=== PATIENT | female | born 1975 | race Caucasian/White ===

== ENCOUNTER 2019-09-19 19:57 | Inpatient (IN) ==
[~2019-09-19 19:57] MED LIST: ENOXAPARIN 40 MG/0.4 ML SYRINGE SUBCUT SCH
[2019-09-19] MEDS ORDERED: ALBUTEROL 2.5 MG/3 ML NEB RESP TX PRN (22:36)
[2019-09-19] MEDS ORDERED: guaiFENesin/CODEINE 5 ML LIQUID PO PRN (22:36)
[2019-09-19] MEDS ORDERED: GLUCAGON 1 MG VIAL IM PRN ×2 (22:36→22:47)
[2019-09-19] MEDS ORDERED: DEXTROSE 50% 25 GM/50 ML SYRINGE IV PRN (22:36)
[2019-09-19] MEDS ORDERED: INFLUENZA VIRUS VACCINE 0.5 ML SYRINGE IM ONE (22:37)
[2019-09-19] MEDS ORDERED: DEXTROSE 50% 25 GM/50 ML VIAL IV PRN (22:47)
[2019-09-19] MEDS ORDERED: POTASSIUM CHLORIDE 20 MEQ TABLET PO ONE (22:55)
[2019-09-19] MEDS: AZTREONAM 2,000 MG in SODIUM CHLORIDE 0.9% 100 ML IV SCH (23:58)
[2019-09-20 00:01] LABS: Apearance,Urine Slightly Hazy (Clear); Bilirubin,Urine Negative (Negative); Blood, Urine Large mg/dL (Negative); Glucose,Urine (UA) >=500 mg/dL (Negative); Ketones,Urine Negative (Negative); Nitrite,Urine Negative (Negative); Protein,Urine 30 MG/DL; RBC,Urine 3043 /HPF (0-4); Urine Color Red (Yellow); Urine Specific Gravity 1.022 (1.001-1.035); Urine Urobilinogen < 2.0 EU/DL (0.2-1.0); WBC,Urine 24 /HPF (0-6)
[2019-09-20] MEDS: INSULIN REGULAR 100 UNIT/ML SUBCUT SCH ×5 (00:12→22:10)
[2019-09-20] MEDS: guaiFENesin/DM ER 600-30 MG TABLET PO SCH ×3 (00:19→22:11)
[2019-09-20] MEDS: ONDANSETRON 4 MG/2 ML VIAL IV PRN ×2 (00:23→10:31)
[2019-09-20] MEDS: tiZANidine 4 MG TABLET PO PRN (00:44)
[2019-09-20] MEDS: GABAPENTIN 600 MG TABLET PO SCH ×4 (00:44→22:11)
[2019-09-20] MEDS: AMITRIPTYLINE 50 MG TABLET PO SCH ×2 (00:44→22:11)
[2019-09-20] MEDS: LEVOFLOXACIN INJ 750 MG in PREMIX 1 EACH IV SCH (01:24)
[2019-09-20 01:50] LABS: Barbiturates Screen,Urine Negative (Negative); Benzodiazepines Screen,Urine Negative (Negative); Cannabinoid Screen,Urine Negative (Negative); Opiate Screen,Urine Negative (Negative); Phencyclidine Screen,Urine Negative (Negative)
[2019-09-20] MEDS: LEVALBUTEROL 1.25 MG/3 ML NEB RESP TX SCH ×4 (01:50→20:40)
[2019-09-20] MEDS: AZTREONAM 2,000 MG in SODIUM CHLORIDE 0.9% 100 ML IV SCH ×4 (05:15→22:11)
[2019-09-20 07:19] LABS: ABG Base Excess 1.1 MMOL/L (-2.5-2.5); ABG HCO3 25.2 MMOL/L (20-26); ABG Oxygen Saturation 88.1 % (95-100); ABG PCO2 39.5 MM HG (35-48); ABG PH 7.419 (7.35-7.45); ABG PO2 56.9 MM HG (80-95); ABG TCO2 22.8 MMOL/L (23-27); Allen Test Positive
[2019-09-20 08:13] LABS: Basophils % 0.2 % (0.0-0.8); Eosinophils # 0.1 10*3/uL (0.0-0.87); Eosinophils % 0.4 % (0.00-10.9); Hematocrit 35.5 VOL% (35.7-47.0); Hemoglobin 11.6 GM/DL (12.0-16.0); Immature Granulocytes % 0.4 %; Immature Granulocytes Absolute 0.05 #; Lymphocytes # 1.1 10*3/uL (1.4-4.0); Lymphocytes % 9.5 % (21.3-54.2); Mean Corpuscular HGB Conc 32.7 GM/DL (32-36); Mean Corpuscular Volume 87.9 FL (87-102); Mean Platelet Volume 10.5 FL (9.6-12.0); Monocytes % 1.5 % (1.7-12.7); Platelet Count 287 T/CUMM (130-400); Red Blood Count 4.04 MC/CUMM (3.8-5.5); Red Cell Distribution Width 14.5 % (9.3-17.3); White Blood Count 11.6 T/CUMM (4-12)
[2019-09-20] MEDS: ENOXAPARIN 40 MG/0.4 ML SYRINGE SUBCUT SCH (08:35)
[2019-09-20] MEDS: PANTOPRAZOLE 40 MG TABLET PO SCH (08:35)
[2019-09-20 08:39] LABS: Band Neutrophils 9 % (0-10); Eosinophils 1 % (0-10); Hypochromasia 1+; Lymphocytes 11 % (20-55); Metamyelocytes 1 %; Microcytosis Slight; Segmented Neutrophils 77 % (50-85); Total Cells Counted 100
[2019-09-20 08:40] LABS: Platelet Estimate Normal
[2019-09-20 08:41] LABS: Albumin 2.4 G/DL (3.4-5.0); Bilirubin,Total 1.6 MG/DL (0.2-1.0); Calcium 8.8 MG/DL (8.5-10.1); Total Protein 7.2 G/DL (6.4-8.3)
[2019-09-20] MEDS ORDERED: PANTOPRAZOLE 40 MG TABLET PO SCH (09:00)
[2019-09-20] MEDS: FUROSEMIDE 40 MG/4 ML VIAL IV SCH ×2 (10:16→16:06)
[2019-09-20] MEDS: MONTELUKAST 10 MG TABLET PO SCH (14:41)
[2019-09-20] MEDS: SERTRALINE 50 MG TABLET PO SCH (14:42)
[2019-09-20] MEDS: LORATADINE 10 MG TABLET PO SCH (14:42)
[2019-09-20] MEDS ORDERED: DEXTROSE 50% 25 GM/50 ML VIAL IV PRN (16:18)
[2019-09-21] MEDS: LEVALBUTEROL 1.25 MG/3 ML NEB RESP TX SCH ×4 (00:25→20:33)
[2019-09-21] MEDS: LEVOFLOXACIN INJ 750 MG in PREMIX 1 EACH IV SCH (01:06)
[2019-09-21] MEDS ORDERED: propofoL 200 MG/20 ML VIAL IV ONE (01:59)
[2019-09-21] MEDS ORDERED: ETOMIDATE 20 MG/10 ML VIAL IV ONE (01:59)
[2019-09-21] MEDS ORDERED: VECURONIUM 10 MG VIAL IV ONE (01:59)
[2019-09-21 02:18] LABS: ABG Base Excess 2.7 MMOL/L (-2.5-2.5); ABG HCO3 26.6 MMOL/L (20-26); ABG Oxygen Saturation 89.2 % (95-100); ABG PCO2 36.6 MM HG (35-48); ABG PH 7.464 (7.35-7.45); ABG PO2 55.9 MM HG (80-95); ABG TCO2 23.2 MMOL/L (23-27)
[2019-09-21] MEDS: AZTREONAM 2,000 MG in SODIUM CHLORIDE 0.9% 100 ML IV SCH ×4 (05:20→23:08)
[2019-09-21 06:09] LABS: Basophils % 0.1 % (0.0-0.8); Eosinophils # 0.1 10*3/uL (0.0-0.87); Eosinophils % 0.7 % (0.00-10.9); Hematocrit 35.6 VOL% (35.7-47.0); Hemoglobin 11.5 GM/DL (12.0-16.0); Immature Granulocytes % 0.6 %; Immature Granulocytes Absolute 0.08 #; Lymphocytes # 1.1 10*3/uL (1.4-4.0); Lymphocytes % 7.7 % (21.3-54.2); Mean Corpuscular HGB Conc 32.3 GM/DL (32-36); Mean Corpuscular Volume 86.8 FL (87-102); Mean Platelet Volume 10.4 FL (9.6-12.0); Monocytes % 1.5 % (1.7-12.7); Neutrophils % 89.4 % (38.7-73.9); Platelet Count 283 T/CUMM (130-400); Red Cell Distribution Width 14.5 % (9.3-17.3); White Blood Count 13.8 T/CUMM (4-12)
[2019-09-21 06:29] LABS: Calcium 8.4 MG/DL (8.5-10.1); Osmolality,Calculated 268.8 MOS/KG (273-304)
[2019-09-21 06:35] LABS: Band Neutrophils 3 % (0-10); Lymphocytes 6 % (20-55); Segmented Neutrophils 89 % (50-85); Total Cells Counted 100
[2019-09-21 06:36] LABS: Anisocytosis 1+; Platelet Estimate Normal
[2019-09-21] MEDS: INSULIN REGULAR 100 UNIT/ML SUBCUT SCH ×4 (08:39→20:37)
[2019-09-21] MEDS: guaiFENesin/DM ER 600-30 MG TABLET PO SCH ×2 (08:40→20:19)
[2019-09-21] MEDS: LORATADINE 10 MG TABLET PO SCH (08:40)
[2019-09-21] MEDS: ENOXAPARIN 40 MG/0.4 ML SYRINGE SUBCUT SCH (08:40)
[2019-09-21] MEDS: glipiZIDE 10 MG TABLET PO SCH (08:40)
[2019-09-21] MEDS: POTASSIUM CHLORIDE 20 MEQ TABLET PO PRN ×4 (08:40→17:14)
[2019-09-21] MEDS: GABAPENTIN 600 MG TABLET PO SCH ×3 (08:40→20:19)
[2019-09-21] MEDS: ROSUVASTATIN 10 MG TABLET PO SCH (08:40)
[2019-09-21] MEDS: SERTRALINE 50 MG TABLET PO SCH (08:40)
[2019-09-21] MEDS: PANTOPRAZOLE 40 MG TABLET PO SCH (08:44)
[2019-09-21] MEDS: MONTELUKAST 10 MG TABLET PO SCH (08:44)
[2019-09-21] MEDS ORDERED: MAGNESIUM SULF RIDER 2 GM in PREMIX 1 EACH IV PRN (10:10)
[2019-09-21] MEDS ORDERED: MAGNESIUM SULF RIDER 4 GM in PREMIX 1 EACH IV PRN (10:10)
[2019-09-21] MEDS: FUROSEMIDE 40 MG/4 ML VIAL IV SCH ×2 (11:13→15:17)
[2019-09-21] MEDS: ACETAMINOPHEN 325 MG TABLET PO PRN (17:21)
[2019-09-21] MEDS: AMITRIPTYLINE 50 MG TABLET PO SCH (20:19)
[2019-09-22] MEDS: AZTREONAM 2,000 MG in SYRINGE 1 EACH IV SCH ×5 (00:06→23:21)
[2019-09-22] MEDS: LEVOFLOXACIN INJ 750 MG in PREMIX 1 EACH IV SCH ×2 (00:06→23:21)
[2019-09-22] MEDS: LEVALBUTEROL 1.25 MG/3 ML NEB RESP TX SCH ×4 (00:12→20:25)
[2019-09-22] MEDS: ENOXAPARIN 40 MG/0.4 ML SYRINGE SUBCUT SCH (07:57)
[2019-09-22] MEDS: FUROSEMIDE 40 MG/4 ML VIAL IV SCH (07:58)
[2019-09-22] MEDS: SERTRALINE 50 MG TABLET PO SCH (08:00)
[2019-09-22] MEDS: guaiFENesin/DM ER 600-30 MG TABLET PO SCH ×2 (08:00→20:10)
[2019-09-22] MEDS: PANTOPRAZOLE 40 MG TABLET PO SCH (08:00)
[2019-09-22] MEDS: MONTELUKAST 10 MG TABLET PO SCH (08:00)
[2019-09-22] MEDS: glipiZIDE 10 MG TABLET PO SCH (08:00)
[2019-09-22] MEDS: ROSUVASTATIN 10 MG TABLET PO SCH (08:00)
[2019-09-22] MEDS: GABAPENTIN 600 MG TABLET PO SCH ×3 (08:00→20:10)
[2019-09-22] MEDS: LORATADINE 10 MG TABLET PO SCH (08:00)
[2019-09-22 08:30] LABS: Basophils % 0.3 % (0.0-0.8); Eosinophils # 0.3 10*3/uL (0.0-0.87); Eosinophils % 2.5 % (0.00-10.9); Hematocrit 37.2 VOL% (35.7-47.0); Immature Granulocytes % 0.8 %; Immature Granulocytes Absolute 0.09 #; Lymphocytes # 1.1 10*3/uL (1.4-4.0); Lymphocytes % 9.5 % (21.3-54.2); Mean Corpuscular HGB Conc 32.3 GM/DL (32-36); Mean Corpuscular Volume 87.9 FL (87-102); Mean Platelet Volume 9.9 FL (9.6-12.0); Monocytes % 1.4 % (1.7-12.7); Neutrophils % 85.5 % (38.7-73.9); Platelet Count 343 T/CUMM (130-400); Red Blood Count 4.23 MC/CUMM (3.8-5.5); Red Cell Distribution Width 14.5 % (9.3-17.3); White Blood Count 11.1 T/CUMM (4-12)
[2019-09-22] MEDS: POTASSIUM CHLORIDE 20 MEQ TABLET PO PRN ×4 (08:37→23:21)
[2019-09-22] MEDS: tiZANidine 4 MG TABLET PO PRN ×2 (08:37→23:21)
[2019-09-22] MEDS: ONDANSETRON 4 MG/2 ML VIAL IV PRN (08:37)
[2019-09-22 08:58] LABS: Osmolality,Calculated 264.9 MOS/KG (273-304)
[2019-09-22] MEDS: INSULIN REGULAR 100 UNIT/ML SUBCUT SCH ×4 (09:04→21:22)
[2019-09-22 10:46] LABS: Allen Test Positive; Pt O2 Delivery Device Other
[2019-09-22 10:49] LABS: ABG HCO3 26.2 MMOL/L (20-26); ABG Oxygen Saturation 96.6 % (95-100); ABG PCO2 37.8 MM HG (35-48); ABG PH 7.445 (7.35-7.45); ABG PO2 84.6 MM HG (80-95); ABG TCO2 22.9 MMOL/L (23-27)
[2019-09-22] MEDS ORDERED: FUROSEMIDE 20 MG/2 ML VIAL ONE (14:58)
[2019-09-22] MEDS ORDERED: FUROSEMIDE 20 MG/2 ML VIAL IV SCH (16:00)
[2019-09-22] MEDS: AMITRIPTYLINE 50 MG TABLET PO SCH (20:10)
[2019-09-22] MEDS: DOCUSATE SODIUM 100 MG CAPSULE PO SCH (20:10)
[2019-09-22] MEDS: ACETAMINOPHEN 325 MG TABLET PO PRN (23:21)
[2019-09-23] MEDS: LEVALBUTEROL 1.25 MG/3 ML NEB RESP TX SCH ×4 (00:55→20:35)
[2019-09-23] MEDS: POTASSIUM CHLORIDE 20 MEQ TABLET PO PRN (01:23)
[2019-09-23 04:41] LABS: ABG Base Excess -0.5 MMOL/L (-2.5-2.5); ABG HCO3 23.6 MMOL/L (20-26); ABG Oxygen Saturation 79.5 % (95-100); ABG PCO2 34.6 MM HG (35-48); ABG PH 7.434 (7.35-7.45); ABG PO2 44.9 MM HG (80-95); ABG TCO2 20.7 MMOL/L (23-27)
[2019-09-23] MEDS: AZTREONAM 2,000 MG in SYRINGE 1 EACH IV SCH ×3 (05:25→17:45)
[2019-09-23 05:59] LABS: Basophils % 0.2 % (0.0-0.8); Eosinophils # 0.3 10*3/uL (0.0-0.87); Eosinophils % 2.6 % (0.00-10.9); Hematocrit 35.6 VOL% (35.7-47.0); Hemoglobin 11.3 GM/DL (12.0-16.0); Immature Granulocytes % 0.9 %; Immature Granulocytes Absolute 0.09 #; Lymphocytes # 1.2 10*3/uL (1.4-4.0); Mean Corpuscular HGB Conc 31.7 GM/DL (32-36); Mean Corpuscular Volume 89.2 FL (87-102); Monocytes % 1.7 % (1.7-12.7); Neutrophils % 83.6 % (38.7-73.9); Platelet Count 342 T/CUMM (130-400); Red Blood Count 3.99 MC/CUMM (3.8-5.5); Red Cell Distribution Width 14.4 % (9.3-17.3); White Blood Count 10.4 T/CUMM (4-12)
[2019-09-23 06:14] LABS: Calcium 9.1 MG/DL (8.5-10.1); Osmolality,Calculated 270.1 MOS/KG (273-304)
[2019-09-23] MEDS: FUROSEMIDE 20 MG/2 ML VIAL IV SCH ×2 (08:14→16:03)
[2019-09-23] MEDS: ROSUVASTATIN 10 MG TABLET PO SCH (08:15)
[2019-09-23] MEDS: metFORMIN 500 MG TABLET PO SCH (08:15)
[2019-09-23] MEDS: ENOXAPARIN 40 MG/0.4 ML SYRINGE SUBCUT SCH (08:15)
[2019-09-23] MEDS: PANTOPRAZOLE 40 MG TABLET PO SCH (08:15)
[2019-09-23] MEDS: GABAPENTIN 600 MG TABLET PO SCH ×3 (08:15→21:45)
[2019-09-23] MEDS: DOCUSATE SODIUM 100 MG CAPSULE PO SCH ×2 (08:15→21:44)
[2019-09-23] MEDS: MONTELUKAST 10 MG TABLET PO SCH (08:15)
[2019-09-23] MEDS: SERTRALINE 50 MG TABLET PO SCH (08:16)
[2019-09-23] MEDS: LORATADINE 10 MG TABLET PO SCH (08:16)
[2019-09-23] MEDS: glipiZIDE 10 MG TABLET PO SCH (08:16)
[2019-09-23] MEDS: guaiFENesin/DM ER 600-30 MG TABLET PO SCH ×2 (08:16→21:45)
[2019-09-23] MEDS: INSULIN REGULAR 100 UNIT/ML SUBCUT SCH ×4 (08:38→21:44)
[2019-09-23] MEDS: methylPREDNISolone SOD SUC 40 MG/1 ML VIAL IV SCH ×3 (08:39→20:24)
[2019-09-23] MEDS: INSULIN NPH 100 UNIT/ML SUBCUT SCH (16:03)
[2019-09-23] MEDS: AMITRIPTYLINE 50 MG TABLET PO SCH (21:44)
[2019-09-24] MEDS: LEVOFLOXACIN INJ 750 MG in PREMIX 1 EACH IV SCH (00:20)
[2019-09-24] MEDS: AZTREONAM 2,000 MG in SYRINGE 1 EACH IV SCH ×4 (00:20→17:38)
[2019-09-24] MEDS: LEVALBUTEROL 1.25 MG/3 ML NEB RESP TX SCH ×3 (00:40→15:00)
[2019-09-24] MEDS: methylPREDNISolone SOD SUC 40 MG/1 ML VIAL IV SCH ×3 (01:30→15:11)
[2019-09-24 05:21] LABS: Basophils % 0.2 % (0.0-0.8); Eosinophils % 0.1 % (0.00-10.9); Hematocrit 35.2 VOL% (35.7-47.0); Hemoglobin 11.4 GM/DL (12.0-16.0); Immature Granulocytes % 0.8 %; Immature Granulocytes Absolute 0.11 #; Lymphocytes % 7.6 % (21.3-54.2); Mean Corpuscular HGB Conc 32.4 GM/DL (32-36); Mean Corpuscular Volume 87.3 FL (87-102); Mean Platelet Volume 10.7 FL (9.6-12.0); Monocytes % 1.2 % (1.7-12.7); Neutrophils % 90.1 % (38.7-73.9); Platelet Count 398 T/CUMM (130-400); Red Blood Count 4.03 MC/CUMM (3.8-5.5); Red Cell Distribution Width 14.6 % (9.3-17.3)
[2019-09-24 08:00] LABS: Calcium 9.2 MG/DL (8.5-10.1); Osmolality,Calculated 275.6 MOS/KG (273-304)
[2019-09-24] MEDS: ENOXAPARIN 40 MG/0.4 ML SYRINGE SUBCUT SCH (08:42)
[2019-09-24] MEDS: INSULIN NPH 100 UNIT/ML SUBCUT SCH ×2 (08:42→15:48)
[2019-09-24] MEDS: FUROSEMIDE 20 MG/2 ML VIAL IV SCH (08:42)
[2019-09-24] MEDS: metFORMIN 500 MG TABLET PO SCH (08:43)
[2019-09-24] MEDS: glipiZIDE 10 MG TABLET PO SCH (08:43)
[2019-09-24] MEDS: MONTELUKAST 10 MG TABLET PO SCH (08:43)
[2019-09-24] MEDS: ROSUVASTATIN 10 MG TABLET PO SCH (08:43)
[2019-09-24] MEDS: SERTRALINE 50 MG TABLET PO SCH (08:43)
[2019-09-24] MEDS: guaiFENesin/DM ER 600-30 MG TABLET PO SCH ×2 (08:43→20:45)
[2019-09-24] MEDS: LORATADINE 10 MG TABLET PO SCH (08:43)
[2019-09-24] MEDS: DOCUSATE SODIUM 100 MG CAPSULE PO SCH ×2 (08:43→20:45)
[2019-09-24] MEDS: GABAPENTIN 600 MG TABLET PO SCH ×3 (08:43→20:48)
[2019-09-24] MEDS: PANTOPRAZOLE 40 MG TABLET PO SCH (08:46)
[2019-09-24] MEDS: INSULIN REGULAR 100 UNIT/ML SUBCUT SCH ×4 (09:02→21:04)
[2019-09-24] MEDS ORDERED: INSULIN GLARGINE 100 UNIT/ML SUBCUT ONE (09:30)
[2019-09-24 12:01] LABS: Calcium 8.9 MG/DL (8.5-10.1); Osmolality,Calculated 289.4 MOS/KG (273-304)
[2019-09-24] MEDS ORDERED: INSULIN REGULAR 100 UNIT/ML IV ONE (12:29)
[2019-09-24] MEDS: AMITRIPTYLINE 50 MG TABLET PO SCH (20:45)
[2019-09-24] MEDS ORDERED: INSULIN GLARGINE 100 UNIT/ML SUBCUT SCH (21:00)
[2019-09-25] MEDS: methylPREDNISolone SOD SUC 40 MG/1 ML VIAL IV SCH ×3 (00:35→17:14)
[2019-09-25] MEDS: AZTREONAM 2,000 MG in SYRINGE 1 EACH IV SCH ×4 (00:35→17:14)
[2019-09-25] MEDS: LEVOFLOXACIN INJ 750 MG in PREMIX 1 EACH IV SCH (00:36)
[2019-09-25] MEDS: INSULIN REGULAR 100 UNIT/ML SUBCUT SCH ×5 (00:55→21:34)
[2019-09-25 05:06] LABS: Basophils % 0.2 % (0.0-0.8); Eosinophils % 0.2 % (0.00-10.9); Hemoglobin 11.2 GM/DL (12.0-16.0); Immature Granulocytes % 1.2 %; Immature Granulocytes Absolute 0.22 #; Lymphocytes # 1.4 10*3/uL (1.4-4.0); Lymphocytes % 7.4 % (21.3-54.2); Mean Corpuscular Volume 89.1 FL (87-102); Mean Platelet Volume 10.1 FL (9.6-12.0); Monocytes % 2.4 % (1.7-12.7); Neutrophils % 88.6 % (38.7-73.9); Platelet Count 361 T/CUMM (130-400); Red Blood Count 3.93 MC/CUMM (3.8-5.5); Red Cell Distribution Width 14.5 % (9.3-17.3)
[2019-09-25 05:55] LABS: Calcium 8.8 MG/DL (8.5-10.1); Osmolality,Calculated 280.8 MOS/KG (273-304)
[2019-09-25] MEDS: LEVALBUTEROL 1.25 MG/3 ML NEB RESP TX SCH ×5 (07:19→19:20)
[2019-09-25] MEDS: GABAPENTIN 600 MG TABLET PO SCH ×3 (08:24→21:08)
[2019-09-25] MEDS: glipiZIDE 10 MG TABLET PO SCH (08:24)
[2019-09-25] MEDS: guaiFENesin/DM ER 600-30 MG TABLET PO SCH ×2 (08:24→21:08)
[2019-09-25] MEDS: INSULIN GLARGINE 100 UNIT/ML SUBCUT SCH ×2 (08:25→21:08)
[2019-09-25] MEDS: ENOXAPARIN 40 MG/0.4 ML SYRINGE SUBCUT SCH (08:25)
[2019-09-25] MEDS: INSULIN NPH 100 UNIT/ML SUBCUT SCH ×2 (08:25→17:14)
[2019-09-25] MEDS: PANTOPRAZOLE 40 MG TABLET PO SCH (08:25)
[2019-09-25] MEDS: LORATADINE 10 MG TABLET PO SCH (08:26)
[2019-09-25] MEDS: FUROSEMIDE 20 MG/2 ML VIAL IV SCH (08:26)
[2019-09-25] MEDS: MONTELUKAST 10 MG TABLET PO SCH (08:27)
[2019-09-25] MEDS: SERTRALINE 50 MG TABLET PO SCH (08:27)
[2019-09-25] MEDS: DOCUSATE SODIUM 100 MG CAPSULE PO SCH ×2 (08:27→21:08)
[2019-09-25] MEDS: ROSUVASTATIN 10 MG TABLET PO SCH (08:30)
[2019-09-25] MEDS: AMITRIPTYLINE 50 MG TABLET PO SCH (21:08)
[2019-09-26] MEDS: methylPREDNISolone SOD SUC 40 MG/1 ML VIAL IV SCH ×4 (01:30→15:43)
[2019-09-26] MEDS: AZTREONAM 2,000 MG in SYRINGE 1 EACH IV SCH ×4 (01:40→17:17)
[2019-09-26] MEDS: LEVOFLOXACIN INJ 750 MG in PREMIX 1 EACH IV SCH (01:40)
[2019-09-26] MEDS: INSULIN REGULAR 100 UNIT/ML SUBCUT SCH ×5 (01:41→17:50)
[2019-09-26] MEDS: LEVALBUTEROL 1.25 MG/3 ML NEB RESP TX SCH ×4 (01:41→20:05)
[2019-09-26 05:47] LABS: Basophils % 0.2 % (0.0-0.8); Eosinophils # 0.1 10*3/uL (0.0-0.87); Eosinophils % 0.6 % (0.00-10.9); Hematocrit 37.6 VOL% (35.7-47.0); Hemoglobin 11.8 GM/DL (12.0-16.0); Immature Granulocytes % 1.6 %; Immature Granulocytes Absolute 0.21 #; Lymphocytes # 1.5 10*3/uL (1.4-4.0); Lymphocytes % 11.8 % (21.3-54.2); Mean Corpuscular HGB Conc 31.4 GM/DL (32-36); Mean Corpuscular Volume 88.9 FL (87-102); Mean Platelet Volume 10.3 FL (9.6-12.0); Monocytes % 4.3 % (1.7-12.7); Neutrophils % 81.5 % (38.7-73.9); Platelet Count 376 T/CUMM (130-400); Red Blood Count 4.23 MC/CUMM (3.8-5.5); Red Cell Distribution Width 14.6 % (9.3-17.3); White Blood Count 12.9 T/CUMM (4-12)
[2019-09-26 06:19] LABS: Calcium 9.2 MG/DL (8.5-10.1); Osmolality,Calculated 278.1 MOS/KG (273-304)
[2019-09-26] MEDS: INSULIN NPH 100 UNIT/ML SUBCUT SCH ×2 (08:42→15:29)
[2019-09-26] MEDS: LORATADINE 10 MG TABLET PO SCH (08:43)
[2019-09-26] MEDS: ENOXAPARIN 40 MG/0.4 ML SYRINGE SUBCUT SCH (08:43)
[2019-09-26] MEDS: guaiFENesin/DM ER 600-30 MG TABLET PO SCH ×2 (08:43→21:57)
[2019-09-26] MEDS: MONTELUKAST 10 MG TABLET PO SCH (08:43)
[2019-09-26] MEDS: DOCUSATE SODIUM 100 MG CAPSULE PO SCH ×2 (08:43→21:57)
[2019-09-26] MEDS: glipiZIDE 10 MG TABLET PO SCH (08:43)
[2019-09-26] MEDS: GABAPENTIN 600 MG TABLET PO SCH ×3 (08:43→21:57)
[2019-09-26] MEDS: PANTOPRAZOLE 40 MG TABLET PO SCH (08:43)
[2019-09-26] MEDS: ROSUVASTATIN 10 MG TABLET PO SCH (08:43)
[2019-09-26] MEDS: INSULIN GLARGINE 100 UNIT/ML SUBCUT SCH ×2 (08:44→22:20)
[2019-09-26] MEDS: SERTRALINE 50 MG TABLET PO SCH (08:44)
[2019-09-26] MEDS: FUROSEMIDE 20 MG/2 ML VIAL IV SCH (08:44)
[2019-09-26] MEDS ORDERED: SODIUM CHLORIDE 0.65% NASAL SPRAY 45 ML BOTTLE BOTH NARES PRN (18:14)
[2019-09-26] MEDS ORDERED: INSULIN NPH 100 UNIT/ML SUBCUT SCH (18:28)
[2019-09-26] MEDS: AMITRIPTYLINE 50 MG TABLET PO SCH (21:57)
[2019-09-27] MEDS: INSULIN REGULAR 100 UNIT/ML SUBCUT SCH ×2 (00:58→05:54)
[2019-09-27] MEDS: AZTREONAM 2,000 MG in SYRINGE 1 EACH IV SCH ×3 (01:00→09:38)
[2019-09-27] MEDS: LEVOFLOXACIN INJ 750 MG in PREMIX 1 EACH IV SCH (01:05)
[2019-09-27] MEDS: LEVALBUTEROL 1.25 MG/3 ML NEB RESP TX SCH ×2 (01:15→08:00)
[2019-09-27] MEDS: methylPREDNISolone SOD SUC 40 MG/1 ML VIAL IV SCH (05:00)
[2019-09-27 05:34] LABS: Basophils % 0.3 % (0.0-0.8); Eosinophils # 0.3 10*3/uL (0.0-0.87); Eosinophils % 2.2 % (0.00-10.9); Hemoglobin 11.6 GM/DL (12.0-16.0); Immature Granulocytes Absolute 0.29 #; Lymphocytes # 3.9 10*3/uL (1.4-4.0); Lymphocytes % 26.7 % (21.3-54.2); Mean Corpuscular HGB Conc 32.2 GM/DL (32-36); Mean Corpuscular Volume 87.8 FL (87-102); Mean Platelet Volume 10.5 FL (9.6-12.0); Monocytes % 4.9 % (1.7-12.7); Neutrophils % 63.9 % (38.7-73.9); Platelet Count 370 T/CUMM (130-400); Red Cell Distribution Width 14.7 % (9.3-17.3); White Blood Count 14.4 T/CUMM (4-12)
[2019-09-27 05:52] LABS: Calcium 8.5 MG/DL (8.5-10.1); Osmolality,Calculated 281.8 MOS/KG (273-304)
[2019-09-27] MEDS: ENOXAPARIN 40 MG/0.4 ML SYRINGE SUBCUT SCH (08:50)
[2019-09-27] MEDS: glipiZIDE 10 MG TABLET PO SCH (09:37)
[2019-09-27] MEDS: DOCUSATE SODIUM 100 MG CAPSULE PO SCH (09:37)
[2019-09-27] MEDS: ROSUVASTATIN 10 MG TABLET PO SCH (09:37)
[2019-09-27] MEDS: guaiFENesin/DM ER 600-30 MG TABLET PO SCH (09:37)
[2019-09-27] MEDS: INSULIN GLARGINE 100 UNIT/ML SUBCUT SCH (09:37)
[2019-09-27] MEDS: LORATADINE 10 MG TABLET PO SCH (09:37)
[2019-09-27] MEDS: FUROSEMIDE 20 MG/2 ML VIAL IV SCH (09:37)
[2019-09-27] MEDS: GABAPENTIN 600 MG TABLET PO SCH (09:37)
[2019-09-27] MEDS: PANTOPRAZOLE 40 MG TABLET PO SCH (09:38)
[2019-09-27] MEDS: SERTRALINE 50 MG TABLET PO SCH (09:38)
[2019-09-27] MEDS: MONTELUKAST 10 MG TABLET PO SCH (09:38)
[2019-09-27] MEDS: ACETAMINOPHEN 325 MG TABLET PO PRN (09:42)
[2019-09-27] MEDS ORDERED: POTASSIUM CHLORIDE 20 MEQ/15 ML UDCUP PO ONE (12:00)
[2019-09-27 12:33] VITALS: BP 126/82
[2019-09-27] MEDS ORDERED: INSULIN LISPRO 100 UNIT/ML SUBCUT SCH (17:00)
[2019-09-28] MEDS ORDERED: INSULIN GLARGINE 100 UNIT/ML SUBCUT SCH (09:00)
[2019-09-28] MEDS ORDERED: predniSONE 20 MG TABLET PO SCH (09:00)
[2019-10-03 15:36] LABS: Patient Symptomatic? NOT GIVEN; Specimen source NOT GIVEN
== END 2019-09-27 14:50 | disposition home or self-care (01) | DRG 196 ==
LOC: N.CC 22:15 → SUATTDRO 22:15 → N.CC 09-21 14:41 → N.2E 09-26 20:37
PROVIDERS: ADMIT Internal Medicine; ATTEND Internal Medicine